=== PATIENT | female | born 1985 | race African-American/Black ===

== ENCOUNTER → 2018-10-10 | Outpatient (CLI) | payer OTHER ==
[~2018-10-10] VITALS: Ht 157.5 cm; Wt 94.3 kg
[~2018-10-10] MED LIST: ASPIRIN325 PO; IBUPROFEN 400400 M2 PO; MOBIC7.5 M1 PO; NEURONTIN 300300 M1 PO; NEURONTIN 400400 M1 PO; NORCO 5-325 TA1 EACH PO; NORFLEX100 MG PO; TYLENOL EXTRA500 MG PO
[2018-10-10 08:41] VITALS: BP 121/75
--- NOTE | 2018-10-10 08:55 | NUR ---
Pain Clinic Assessment: 1. History of Osteoarthritis: History of Rheumatoid Arthritis: 2. Height: 5 ft. 2 in. 157.5 cm. Weight: 208.0 lb. oz. 94.348 kg. Patient's BMI: 38.0 3. Vital Signs: BP: 121/75 Pulse: 93 Resp: 16 Temp: 02 Sat: 100 ECG Mon: 4. Pain Intensity: 7 5. Fall Risk: Dizziness: N Needs help standing or walking: N Fallen in the last 3 months: N Fall risk comments: 6. Patient on Blood Thinner: None 7. History of Hypertension: N 8. Opioid Therapy greater than 6 weeks: Y Opiate Contract Signed: 9. Risk Assessment Tool Provided: LOW 10. Functional Assessment Tool: / 11. Recreational Drug Use: Never Drug Type: Tobacco Use: Never Smoker Tobacco Type: Amount or Packs/day: How Many Years: Alcohol Use: No Frequency: Quant:
--- NOTE | 2018-10-12 15:34 | HPC ---
[facility] [address] [address] PAIN MANAGEMENT CONSULTATION Name: ELIZABETH WAGNER Room #: REG [facility].#: [id number] Admission: 10/10/18 Attend Phys: Jose Schwab MD Discharge: Date of : 81 Report #: [id number] THIS REPORT FOR: //name// CC: Russell CARDENAS MD FAM unknown Jose Schwab DATE OF SERVICE: 10/10/2018 The patient is a 33-year-old I am seeing today at the request of her workmen's compensation company for evaluation of right arm pain. She complains of a continuous, steady, constant, shooting, cramping, aching pain involving her wrist and radiating to upper arm with cramping sensations within the forearm and at times, in the biceps and upper arm. Her average daily pain score is an 8-9/10 and her pain score today is a 7/10. She had an independent medical evaluation performed by Radha Callaway MD, the date of that assessment 08/16/2018, is available for my review. Dr. Callaway has done an exceptional job of describing in detail the patient's work and the events, which she says brought about the current pain, which has now been present since it began on 02/01/2018. At that time, she was performing multiple repetitive tasks at work. 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 This required her to perform sewing and administrative duties. In 2018, her workload was substantially increased and she began experiencing a stabbing pain in her right hand. This was the onset of the pain that she now describes in my clinic. Pain is still worsened with activities that require use of her wrist and fingers. She has been using her left hand to do modified work duties, stapling documents. She reports that up until 08/18/2018, she was stapling up to 5000 sheets of paper, generally 3 at a time over an 8-hour shift. She was placed on FMLA and has been off work since 08/18/2018. She is scheduled to return on Wednesday of this week. In addition to Dr. Callaway she has for treatment, has been seen by Dr. Steele at the [facility]. She was referred to the pain clinic there, but was unable to go. She has been using topical agents including Gassaway Ans[place], Voltaren gel without relief and Biofreeze. She has used rice pack for heat, which provides some temporary relief. CURRENT MEDICATIONS: Include aspirin 325 mg 2 tablets daily, ibuprofen 400 mg 1 to 1/2 tablet daily, Tylenol 500 mg b.i.d. She has taken gabapentin for postop pain relief following a surgery that was performed in August. She underwent a hysterectomy on 08/18/[address] Callaway. Bladder sling was also performed. [address] [address] PAIN MANAGEMENT CONSULTATION Name: ELIZABETH WAGNER Room #: REG CL Anthony.#: [id number] Admission: 10/10/18 Attend Phys: Jose Schwab MD Discharge: Date of : 81 Report #: [id number] ALLERGIES: None. PAST MEDICAL HISTORY: She has antiphospholipid antibody syndrome. She has had 5 miscarriages during the time and she has also delivered 3 infants. Diagnosis was made after the multiple miscarriages. She carried her children to 30-35 weeks of gestation, was on anticoagulant therapy. She has a history of hysterectomy and bladder sling as described, hernia repair in August 2017. REVIEW OF SYSTEMS: She has had some slight weight changeover operator the last several months despite decreased appetite. She describes frequent urination and nocturia, incontinence and dribbling. She complains of a numbness sensation in her right hand and forearm. She admits to nervousness and depression. She has a history of anemia. SOCIAL HISTORY: She is a single parent living with her 4 children. In addition to the 3 born since 2013, she has a 12-year-old at home. She denies use of tobacco. She denies use of alcohol. She has completed an impact pain score, which is 56/70 suggesting significant interference at the maximum of mood, work, sleep and enjoyment of life related to her ongoing pain. Her score is 10/10 for each of those categories. She denies use of tobacco, alcohol and has no history of illicit drug use. FAMILY HISTORY: Noted for cancer. PHYSICAL EXAMINATION: GENERAL: Pleasant female. VITAL SIGNS: She is 5 feet 2 inches, 208 pounds with a BMI of 38.0. Her blood pressure is 121/75, heart rate is 93, respirations 16 and O2 sat 100%. HEENT: Reveals pupils to be equal, round, reactive to light. EOMs are intact. Mucous membranes are moist. NECK: Supple with good range of motion. There is no exacerbation of discomfort into the arm with any movement. She has mild tenderness in the right trapezius. CHEST: Clear to auscultation. CARDIAC: Regular rhythm without murmur. ABDOMEN: Soft. Surgical scars present. MUSCULOSKELETAL: Examination of the left and right upper extremity revealed good range of motion in the shoulder with no exacerbation of pain. She has no difficulty with abduction, internal and external rotation. Similar range of motion is noted in the elbow bilaterally. There was no restriction. She has increased pain with wrist flexion, extension, abduction. There is no swelling or redness. There is no allodynia. There are no appreciable changes in hair growth. Fingers bilaterally appear symmetrical and normal. Sensation is equal. She describes some slight hypersensitivity to pinprick in the lateral forearm. 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 Biceps and triceps function are asymmetrical with weakness noted in both biceps and triceps strength testing on the right. Deep tendon reflexes are trace to 1+ in the upper and lower [facility] [address] [place] [address] PAIN MANAGEMENT CONSULTATION Name: ELIZABETH WAGNER Room #: REG MAZIN Cruz.#: [id number] Admission: 10/10/18 Attend Phys: Jose Schwab MD Discharge: Date of : 81 Report #: [id number] extremities, these are symmetrical. Records reviewed include those of Dr. Radha Callaway and Dr. Tin Shah. An EMG is reviewed, which is negative for neuropathic changes. IMPRESSION: 1. Right wrist and forearm pain, now chronic. Exam would suggest this to be primarily soft tissue inflammation, which has not responded to conservative therapy. 2. The patient is in the midst of workmen's compensation disability treatment and assessment. 3. Antiphospholipid antibody syndrome. RECOMMENDATIONS: 1. Agree that she should see an occupational therapist and a certified hand therapist to discuss exercises and perhaps splinting. 2. I would focus on soft tissue inflammation treatment with the discontinuation of the aspirin and low dose ibuprofen substituting meloxicam 7.5 mg b.i.d. 3. She had symptomatic relief of some of her arm pain with gabapentin and showed good tolerance of gabapentin 300 mg 3 times daily. I reinitiated that for symptom management beginning at 1 tablet at night followed by b.i.d., then t.i.d. therapy as tolerated. I do not believe that she demonstrates evidence of complex regional pain syndrome. I see no reason to initiate sympathetic nerve blocks at this point. <ELECTRONICALLY SIGNED> By: Jose Schwab MD 10/12/18 1534 1234 1856 Jose Schwab MD /nt
== END ==
LOC: PAIN 06:58
DX: M25.531 Pain in right wrist (principal); M79.631 Pain in right forearm; D68.61 Antiphospholipid syndrome; Z79.899 Other long term (current) drug therapy

== ENCOUNTER 2018-10-14 11:27 | Emergency (ER) | payer OTHER ==
[~2018-10-14] VITALS: Ht 157.5 cm; Wt 94.3 kg
[~2018-10-14 11:27] MED LIST changes: -NORFLEX100 MG PO
[2018-10-14] MEDS ORDERED: NORFLEX100 MG PO (12:53)
[2018-10-14] MEDS ORDERED: NORCO 5-325 TA1 EACH PO (12:53)
[2018-10-14 13:02] VITALS: BP 134/94
== END 2018-10-14 13:03 | disposition home or self-care (01) ==
LOC: ER 11:27
DX: S16.1XXA Strain of muscle, fascia and tendon at neck level, initial encounter (principal); M54.12 Radiculopathy, cervical region; M70.961 Unspecified soft tissue disorder related to use, overuse and pressure, right lower leg; Z90.710 Acquired absence of both cervix and uterus; X50.1XXA Overexertion from prolonged static or awkward postures, initial encounter; Y92.89 Other specified places as the place of occurrence of the external cause; Y93.89 Activity, other specified; Y99.8 Other external cause status

== ENCOUNTER → 2018-10-24 | Outpatient (CLI) | payer OTHER ==
[~2018-10-24] VITALS: Ht 157.5 cm; Wt 94.8 kg
[~2018-10-24] MED LIST changes: +NORFLEX100 MG PO; +TRAMADOL HCL50 MG PO
--- NOTE | ~2018-10-24 | HPC ---
[facility] [address] [place] [address] PAIN MANAGEMENT CONSULTATION Name: ELIZABETH WAGNER [id number] Admission: 10/24/18 ������������������ Attend Phys: Jose Schwab MD Discharge: ������������������ Date of : 81 Report #: [id number] THIS REPORT FOR: //name// CC: [facility] physician/PCP Jose Schwab DATE OF SERVICE: 10/24/2018 Followup visit for chronic right arm pain. Workmen's compensation. The patient is in the clinic today in followup. I saw her on 10/10/2018. She was referred to occupational therapy for hand and wrist evaluation, therapeutic exercise and modalities as needed. She began complaining of more pain in the neck after her visit to my office. She was seen in the Emergency Room on the day that she was to return to work complaining of severe exacerbation of pain radiating through the neck, shoulder, upper chest, upper arm, forearm and into the hand. She has been unable to use the right arm for any day-to-day activities. 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 The copies come off about 6 feet off the ground. 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 I do not have a job description for her current work. She is unable to do this with her left hand. She is in the midst of a workmen's compensation process and has an attorney general hired to help her with her claims. MEDICATIONS: Gabapentin 300 mg t.i.d., meloxicam 7.5 mg b.i.d., Tylenol 500 mg as needed. She denies side effects from medication. ALLERGIES: None. PHYSICAL EXAMINATION: GENERAL: Somewhat anxious female. VITAL SIGNS: Blood pressure 141/80, heart rate 98, respirations 17. BMI 38.2. EXTREMITIES: Examination of the neck reveals pain now with neck flexion and extension, lateral tilt. Tenderness in the suboccipital region and along the muscles of the right side of the neck. Splenius capitis, cervicalis trapezius all demonstrate tenderness. She has decreased range of motion in the shoulder, elbow. Muscle strength deltoid 3/5, biceps 2-3/5, triceps 2-3/5, accounting officer 2/5. Sensation diminished in the C6, C7, C8 distribution. IMPRESSION: Increasing pain in the right arm. She still does not demonstrate allodynia or swelling, so characteristic of patients with complex regional pain syndrome. Much of her weakness is guarding related to pain complaint. RECOMMENDATION: An epidural steroid injection will [place] [address] PAIN MANAGEMENT CONSULTATION Name: ELIZABETH WAGNER Room #: REG MAZIN Vasquez#: [id number] Admission: 10/24/18 ������������������ Attend Phys: Jose Schwab MD Discharge: ������������������ Date of : 81 Report #: [id number] block and to see if we can improve use of the right arm. I have discussed the importance of ongoing regular range of motion exercises, flexibility and strengthening. She will continue to follow recommendations of physical and occupational therapist for these exercises. PROCEDURE: Cervical epidural injection, C6-C7 right paramedian translaminar. DESCRIPTION OF PROCEDURE: After informed consent, she was taken to fluoroscopic suite, placed prone, skin prepped with ChloraPrep. Skin anesthetized over C6-C7. A 20-gauge Tuohy epidural needle was advanced first attempt in the epidural space with loss of resistance. No blood or CSF was aspirated. 1 mL of Omnipaque was injected and excellent spread was seen all along the right side extending into the lateral recess as far as C3 and down to roughly T2. This was then followed by 4 mL of 0.5% lidocaine mixed with 80 mg of triamcinolone. She tolerated the procedure well. There were no complications. She was taken to recovery room where she was observed for 45 minutes and discharged. Pain score 1-2 at discharge with improvement in range of motion. Followup visit planned in 2-3 weeks. Further injections will depend upon response to treatment. ��������������������������������������������� ���������������������������������������� By: ��������������������������������������������� 1221 2214 Jose Schwab MD /nt
[2018-10-24 08:34] VITALS: BP 141/80
--- NOTE | 2018-10-24 08:37 | NUR ---
Pain Clinic Assessment: 1. History of Osteoarthritis: History of Rheumatoid Arthritis: 2. Height: 5 ft. 2 in. 157.5 cm. Weight: 209.0 lb. oz. 94.802 kg. Patient's BMI: 38.2 3. Vital Signs: BP: 141/80 Pulse: 98 Resp: 17 Temp: 02 Sat: 100 ECG Mon: 4. Pain Intensity: 7 5. Fall Risk: Dizziness: N Needs help standing or walking: N Fallen in the last 3 months: N Fall risk comments: 6. Patient on Blood Thinner: None 7. History of Hypertension: N 8. Opioid Therapy greater than 6 weeks: Y Opiate Contract Signed: 9. Risk Assessment Tool Provided: LOW 10. Functional Assessment Tool: 56/ 11. Recreational Drug Use: Never Drug Type: Tobacco Use: Never Smoker Tobacco Type: Amount or Packs/day: How Many Years: Alcohol Use: No Frequency: Quant:
== END | disposition home or self-care (01) ==
LOC: PAIN 07:22
DX: M54.12 Radiculopathy, cervical region (principal); G89.29 Other chronic pain; Z79.899 Other long term (current) drug therapy; Z98.890 Other specified postprocedural states

== ENCOUNTER → 2018-11-07 | Outpatient (CLI) | payer OTHER ==
[~2018-11-07] VITALS: Ht 157.5 cm; Wt 96.2 kg
--- NOTE | ~2018-11-07 | HPC ---
[facility] [address] [place] [address] PAIN MANAGEMENT CONSULTATION Name: ELIZABETH WAGNER Room #: REG [facility] Anthony.#: [id number] Admission: 11/07/18 ������������������ Attend Phys: Jose Schwab MD Discharge: ������������������ Date of : 81 Report #: [id number] THIS REPORT FOR: //name// CC: [facility] physician/PCP Jose Schwab DATE OF SERVICE: 11/07/2018 Followup visit for chronic right arm pain, radicular pain in the C6 through C8 distribution. Sympathetic pain features. I am pleased to report that the patient had an outstanding response to her cervical epidural injection. For several days following her injection, she had almost complete pain relief. This was dramatic and well outlasted effects of the local anesthetic. Changed her outlook and she was able to be more involved in therapy. After the few days of complete relief, the pain gradually returned and for many days, she had about 70% pain relief and was able to continue in therapy. She was doing something called a nerve glide where she was required to perform external rotation of her arm and this seemed to exacerbate her pain some, but overall she remains better even today by about 15%-20%. She seems more positive and optimistic at this stage. I would say that her injections provided substantial benefit. She was able to diminish her use of gabapentin and tramadol during the period when her pain was under good control. She does not need additional medication for pain other than the gabapentin today and she continues on it at 300 mg t.i.d. PHYSICAL EXAMINATION: GENERAL: She seems more pleasant, optimistic, less anxious today. VITAL SIGNS: Her blood pressure 123/82, heart rate 108, respirations 18. MUSCULOSKELETAL: She has still some limitations in range of motion of the neck with neck extension and there remains tenderness along the suboccipital region and right neck. Strength is modestly improved, deltoid 4/5, biceps 3-4/5, triceps 4/5, oncology pharmacist 3/5. Sensation is intact through the C6-C8 distribution. IMPRESSION: Right arm pain, radicular features. She has responded very favorably to an initial epidural injection. PLAN: I will repeat a second injection today, but would like to wait 1 month before we see her back in the clinic. Hopefully, she will see a further improvement, sustained relief and will see progress in therapy. I would like her to continue in therapy cautiously for goals of return to function. [address] [address] PAIN MANAGEMENT CONSULTATION Name: ELIZABETH WAGNER Room #: REG CL Christina#: [id number] Admission: 11/07/18 ������������������ Attend Phys: Jose Schwab MD Discharge: ������������������ Date of : 81 Report #: [id number] PROCEDURE: Cervical epidural injection under fluoroscopic guidance C6-C7 right paramedian approach. After informed consent, she was taken to fluoroscopic suite, placed prone, skin prepped with ChloraPrep. Skin anesthetized over the C6-C7 interspace and a 20-gauge Tuohy epidural needle advanced on the first attempt in the epidural space with loss of resistance technique. There was no blood or CSF aspirated. 1 mL of Omnipaque was injected. Good spread of dye was observed into the epidural space, followed by 3 mL of 0.5% lidocaine mixed with 80 mg of triamcinolone. She tolerated the procedure well. Pain was reduced again by about 40% in recovery room and she was discharged with a followup visit scheduled in 1 month. ��������������������������������������������� ���������������������������������������� By: ��������������������������������������������� 1749 1240 Jose Schwab MD /nt
[2018-11-07 13:50] VITALS: BP 123/82
--- NOTE | 2018-11-07 13:51 | NUR ---
Pain Clinic Assessment: 1. History of Osteoarthritis: History of Rheumatoid Arthritis: 2. Height: 5 ft. 2 in. 157.5 cm. Weight: 212.0 lb. oz. 96.163 kg. Patient's BMI: 38.8 3. Vital Signs: BP: 123/82 Pulse: 108 Resp: 18 Temp: 02 Sat: 100 ECG Mon: 4. Pain Intensity: 7 5. Fall Risk: Dizziness: N Needs help standing or walking: N Fallen in the last 3 months: N Fall risk comments: 6. Patient on Blood Thinner: None 7. History of Hypertension: N 8. Opioid Therapy greater than 6 weeks: Y Opiate Contract Signed: 9. Risk Assessment Tool Provided: LOW 10. Functional Assessment Tool: 56/ 11. Recreational Drug Use: Never Drug Type: Tobacco Use: Never Smoker Tobacco Type: Amount or Packs/day: How Many Years: Alcohol Use: No Frequency: Quant:
== END | disposition home or self-care (01) ==
LOC: PAIN 07:13
DX: M54.12 Radiculopathy, cervical region (principal); M79.601 Pain in right arm; G89.29 Other chronic pain; Z79.899 Other long term (current) drug therapy

== ENCOUNTER → 2018-11-28 | Outpatient (CLI) | payer OTHER ==
[~2018-11-28] VITALS: Ht 157.5 cm; Wt 97.3 kg
[~2018-11-28] MED LIST changes: +LIDOCAINE PAIN1 EACH TRANSDERM; +MOBIC7.5 MG PO; +TRAMADOL 50 MG50 MG PO
[2018-11-28 11:05] VITALS: BP 139/90
--- NOTE | 2018-11-28 11:18 | NUR ---
Pain Clinic Assessment: 1. History of Osteoarthritis: History of Rheumatoid Arthritis: 2. Height: 5 ft. 2 in. 157.5 cm. Weight: 214.6 lb. oz. 97.342 kg. Patient's BMI: 39.2 3. Vital Signs: BP: 139/90 Pulse: 79 Resp: 20 Temp: 02 Sat: 100 ECG Mon: 4. Pain Intensity: 8 TODAY 7-8 AVG 5. Fall Risk: Dizziness: N Needs help standing or walking: N Fallen in the last 3 months: N Fall risk comments: 6. Patient on Blood Thinner: None 7. History of Hypertension: N 8. Opioid Therapy greater than 6 weeks: Y Opiate Contract Signed: 9. Risk Assessment Tool Provided: LOW 10. Functional Assessment Tool: 56/70 11. Recreational Drug Use: Never Drug Type: Tobacco Use: Never Smoker Tobacco Type: Amount or Packs/day: How Many Years: Alcohol Use: No Frequency: Quant:
--- NOTE | 2018-11-30 15:29 | HPC ---
[facility] [address] [place] [address] PAIN MANAGEMENT CONSULTATION Name: ELIZABETH WAGNER [facility] [id number] Admission: 11/28/18 ������������������ Attend Phys: Jose Schwab MD Discharge: ������������������ Date of : 81 Report #: [id number] THIS REPORT FOR: //name// CC: [facility] physician/PCP Jose Schwab DATE OF SERVICE: 11/28/2018 CHIEF COMPLAINT: Followup visit for chronic right arm pain with radicular features as well as sympathetic pain. The patient returns to pain clinic today reporting that her second epidural injection provided substantial pain relief greater than 70%. She said she then went to therapy where she was given sessions of exercises some lasting up to 45 minutes and the pain rapidly returned. She now complains of swelling in her right trapezius, tingling and increasing pain to a level of 8/10 with radiation down the arm. She reports that this began fairly quickly after her therapy. She is involved in a workman's comp system. She has an ip attorney to help. She reports she got the ip attorney to help with her case because she was not getting seen or sent to physicians. She was in our clinic today for a long time and then returned later. She is clearly upset. She cried on more than one occasion. Her work is hard. The jobs that they have her doing in reduced duty are also difficult for her. 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 She is a single mother of 4 children, all under the age of 12. She cried today saying she could not even brush the hair of her children or provide for them in the kitchen. She is highly frustrated and depressed. We discussed depression and medication, but she was resistant to using any medication, complaining that there was depression in her family and medications had untoward side effects. CURRENT MEDICATIONS: Tramadol 1 tablet twice daily, Tylenol Extra Strength 1 tablet daily, ibuprofen 600 mg 1 tablet daily, gabapentin 400 mg t.i.d. PHYSICAL EXAMINATION: Blood pressure is 139/90, heart rate 79, respirations 20, BMI is 39.2. She is about 6 pounds heavier than she was when she came into our clinic for her initial visit 2 weeks ago. At that time, her BMI was 38. Cervical range of motion is limited in extension. She has tenderness throughout the right side of her cervical spine. She holds her right arm in a touch me not position. There is some diffuse tenderness throughout the upper and lower forearm. She has a number of small circular lesions [place] [address] PAIN MANAGEMENT CONSULTATION Name: ELIZABETH WAGNER Room #: REG [facility] Christina#: [id number] Admission: 11/28/18 ������������������ Attend Phys: Jose Schwab MD Discharge: ������������������ Date of : 81 Report #: [id number] be acne like. She reports that when the pain is severe, she scratches her arm. EXTREMITIES: There is weakness in biceps, deltoid, triceps and graphite grinder strength today. There is no allodynia noted. IMPRESSION: 1. Severe right arm pain with sympathetic features. 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 2. Situational depression. She has a significant amount of stress and anxiety at this point. RECOMMENDATION: I have ordered an MRI of her cervical spine. We do not have that study yet and she has evidence of radiculopathy. I have discussed some with her the difference between objective and subjective symptoms. We presented an optimistic outlook for her and promised her that we were here to help. She spent an additional 15-30 minutes in the clinic and was counseled by our excellent pain nursing staff on positive outlook and self-efficacy. A followup visit is planned after her MRI to determine whether or not a subsequent cervical epidural injection would be of benefit. Total time spent with this patient in the clinic today including my time and the nurse's time counseling was about 1 hour. ��������������������������������������������� <ELECTRONICALLY SIGNED> ���������������������������������������� By: Jose Schwab MD ��������������������������������������������� 11/30/18 1529 1727 2105 Jose Schwab MD /nt
== END ==
LOC: PAIN 06:58
DX: M79.601 Pain in right arm (principal); F43.21 Adjustment disorder with depressed mood; F41.9 Anxiety disorder, unspecified; Z79.899 Other long term (current) drug therapy

== ENCOUNTER 2018-12-19 19:58 | Emergency (ER) | payer BC ==
[~2018-12-19] VITALS: Ht 177.8 cm; Wt 97.1 kg
[2018-12-19 22:08] LABS: HEMATOCRIT 37.6 % (37.0-47.0); HEMOGLOBIN 12.7 gm/dL (12.0-15.0); MCH 30.3 pg (26.0-34.0); MCHC 33.8 g/dL (28.0-37.0); MCV 89.6 fL (80.0-100.0); RBC 4.2 mil/uL (4.20-5.00); RDW 13.7 % (10.5-14.5); WBC 9.4 thou/uL (4.0-11.0)
[2018-12-19 22:15] LABS: CALCIUM 8.3 mg/dL (8.5-10.1); CREATININE 0.8 mg/dL (0.6-1.0); POTASSIUM 3.9 mmol/L (3.5-5.1)
[2018-12-20] MEDS ORDERED: NORCO 5-325 TA1 EACH PO (00:05)
[2018-12-20 00:30] VITALS: BP 00/00
== END 2018-12-20 00:32 | disposition home or self-care (01) ==
LOC: ER 19:58
PROVIDERS: Emergency Medicine
DX: M54.12 Radiculopathy, cervical region (principal); R22.1 Localized swelling, mass and lump, neck; Z90.710 Acquired absence of both cervix and uterus

== ENCOUNTER 2019-01-20 15:26 | Emergency (ER) | payer OTHER ==
[~2019-01-20] VITALS: Ht 157.5 cm; Wt 89.8 kg
[2019-01-20] MEDS ORDERED: ULTRAM 50MG TAB50 MG PO (15:45)
[2019-01-20 16:23] LABS: HEMATOCRIT 39.9 % (37.0-47.0); HEMOGLOBIN 13.5 gm/dL (12.0-15.0); MCHC 33.7 g/dL (28.0-37.0); MCV 88.9 fL (80.0-100.0); RBC 4.49 mil/uL (4.20-5.00); RDW 13.3 % (10.5-14.5); WBC 9.2 thou/uL (4.0-11.0)
[2019-01-20 16:32] LABS: CALCIUM 8.8 mg/dL (8.5-10.1); CREATININE 0.8 mg/dL (0.6-1.0); POTASSIUM 3.7 mmol/L (3.5-5.1)
[2019-01-20 17:26] VITALS: BP 139/74
[2019-01-20] MEDS ORDERED: TIZANIDINE HCL4 MG PO (17:34)
[2019-01-20] MEDS ORDERED: NORCO 5-325 TA1 EACH PO (17:34)
== END 2019-01-20 18:45 | disposition home or self-care (01) ==
LOC: ER 15:26
PROVIDERS: Physician Assistant
DX: M54.12 Radiculopathy, cervical region (principal); Z90.710 Acquired absence of both cervix and uterus

== ENCOUNTER 2020-05-01 22:52 | Emergency (ER) | payer OTHER ==
[~2020-05-01] VITALS: Ht 157.5 cm; Wt 108.9 kg
[~2020-05-01 22:52] MED LIST changes: +TIZANIDINE HCL4 MG PO; +ULTRAM 50MG TAB50 MG PO
[2020-05-02 00:50] VITALS: BP 121/91
== END 2020-05-02 01:00 | disposition home or self-care (01) ==
LOC: ER 22:52
DX: S61.215A Laceration without foreign body of left ring finger without damage to nail, initial encounter (principal); Z90.711 Acquired absence of uterus with remaining cervical stump; Z79.899 Other long term (current) drug therapy; W27.2XXA Contact with scissors, initial encounter; Y93.89 Activity, other specified; Y92.89 Other specified places as the place of occurrence of the external cause; Y99.8 Other external cause status

== ENCOUNTER 2020-05-22 14:10 | Emergency (ER) | payer OTHER ==
[~2020-05-22] VITALS: Ht 167.6 cm; Wt 92.1 kg
[2020-05-22 14:57] LABS: ABSOLUTE NEUTROPHILS 4.8 thou/uL (1.4-8.2); BASOPHILS 1.1 % (0.0-2.0); EOSINOPHILS 5.9 % (0.0-3.0); HEMATOCRIT 38.6 % (37.0-47.0); HEMOGLOBIN 12.7 gm/dL (12.0-15.0); LYMPHOCYTES 30.1 % (24.0-44.0); MCHC 32.9 g/dL (28.0-37.0); MCV 91.1 fL (80.0-100.0); MONOCYTES 9.2 % (1.0-8.0); PLATELET COUNT 352 thou/uL (150-400); POLYS 53.7 % (36.0-66.0); RBC 4.23 mil/uL (4.20-5.00); RDW 13.1 % (10.5-14.5); WBC 8.9 thou/uL (4.0-11.0)
[2020-05-22 15:08] LABS: ANION GAP 14 mmol/L (7-16); BUN 11 mg/dL (7-18); CALCIUM 8.4 mg/dL (8.5-10.1); CHLORIDE 104 mmol/L (98-107); CO2 21 mmol/L (21-32); CREATININE 0.8 mg/dL (0.6-1.0); GLUCOSE 102 mg/dL (74-106); SODIUM 139 mmol/L (136-145)
[2020-05-22 15:18] LABS: ALBUMIN 3.5 g/dL (3.4-5.0); SGOT 28 U/L (15-37); SGPT 36 U/L (30-65); TOTAL BILIRUBIN 0.9 mg/dL (0.2-1.0); TOTAL PROTEIN 7.6 g/dL (6.4-8.2); TROPONIN-I <0.06 ng/mL (<0.06)
--- NOTE | 2020-05-22 16:42 | EKG ---
[facility] [place] [address] [address] [place] [address] ELECTROCARDIOGRAM REPORT Name: ELIZABETH WAGNER Room #: PRE [facility]..#: [id number] Admission: Attend Phys: Discharge: Date of : 81 Report #: [id number] THIS REPORT FOR: cc: FAM - Family physician unknown FAM - Family physician unknown Kashif Adler MD [facility] ~ THIS REPORT FOR: //name// [facility] ED Test Date: 2020-05-22 Test Time: 14:34:50 Pat Name: ELIZABETH WAGNER Department: Room: Gender: F Real Estate Account Executive: KF : 1985 Requested By: Naa Farrell Order Number: [id number] MD: Kashif Adler Measurements Intervals [place] Rate: 84 P: 17 NV: 127 QRS: 18 QRSD: 82 T: 2 QT: 371 QTc: 439 Interpretive Statements Sinus rhythm Borderline T abnormalities, anterior leads No previous ECG available for comparison Electronically Signed On 05-22-2020 16:41:53 CDT by Kashif Adler [email or web address] <ELECTRONICALLY SIGNED> By: Kashif Adler MD, FACC 05/22/20 1641 1434 1434 Kashif Adler MD, FACC /EPI
[2020-05-22 17:09] LABS: URINE BILIRUBIN NEGATIVE (Negative); URINE BLOOD NEGATIVE (Negative); URINE CLARITY CLEAR; URINE COLOR YELLOW; URINE GLUCOSE-RANDOM* NEGATIVE (Negative); URINE KETONES NEGATIVE (Negative); URINE LEUKOCYTES-REFLEX NEGATIVE (Negative); URINE NITRITE-REFLEX NEGATIVE (Negative); URINE PROTEIN (DIPSTICK) NEGATIVE (Negative)
[2020-05-22] MEDS ORDERED: PROMETH-CODEIN 65 ML PO (17:23)
[2020-05-22 17:41] VITALS: BP 116/74
== END 2020-05-22 17:41 | disposition home or self-care (01) ==
LOC: ER 14:10
PROVIDERS: Physician Assistant
DX: R05 Cough (principal); R06.02 Shortness of breath; Z20.828 Contact with and (suspected) exposure to other viral communicable diseases; R07.89 Other chest pain; R53.83 Other fatigue; R00.2 Palpitations; Z90.711 Acquired absence of uterus with remaining cervical stump; Z79.899 Other long term (current) drug therapy

== ENCOUNTER 2021-03-23 01:12 | Emergency (ER) | payer OTHER ==
[~2021-03-23] VITALS: Ht 157.5 cm; Wt 95.3 kg
[~2021-03-23 01:12] MED LIST changes: +PROMETH-CODEIN 65 ML PO
[2021-03-23] MEDS ORDERED: HYDROCODON-ACE1 EAC7 PO (01:36)
[2021-03-23] MEDS ORDERED: NEURONTIN 400M400 M2 PO (01:37)
[2021-03-23 02:16] LABS: URINE BILIRUBIN NEGATIVE (Negative); URINE BLOOD NEGATIVE (Negative); URINE CLARITY CLEAR; URINE COLOR YELLOW; URINE GLUCOSE-RANDOM* NEGATIVE (Negative); URINE KETONES NEGATIVE (Negative); URINE LEUKOCYTES-REFLEX NEGATIVE (Negative); URINE NITRITE-REFLEX NEGATIVE (Negative); URINE PROTEIN (DIPSTICK) NEGATIVE (Negative); URINE SPECIFIC GRAVITY 1.025 (1.005-1.035); URINE UROBILINOGEN 0.2 E.U./dl (0.2-1.0)
[2021-03-23 02:37] LABS: ABSOLUTE NEUTROPHILS 5.1 thou/uL (1.4-8.2); BASOPHILS 0.7 % (0.0-2.0); EOSINOPHILS 3.8 % (0.0-3.0); HEMATOCRIT 37.4 % (37.0-47.0); HEMOGLOBIN 12.6 gm/dL (12.0-15.0); MCH 31.2 pg (26.0-34.0); MCHC 33.7 g/dL (28.0-37.0); MCV 92.5 fL (80.0-100.0); MONOCYTES 6.5 % (1.0-8.0); PLATELET COUNT 311 thou/uL (150-400); RBC 4.04 mil/uL (4.20-5.00); WBC 10.1 thou/uL (4.0-11.0)
[2021-03-23 02:38] LABS: CALCIUM 8.8 mg/dL (8.5-10.1); CREATININE 0.8 mg/dL (0.6-1.0)
[2021-03-23 02:51] LABS: ALBUMIN 3.8 g/dL (3.4-5.0); DIRECT BILIRUBIN 0.1 mg/dL (<0.1-0.2); TOTAL BILIRUBIN 0.5 mg/dL (0.2-1.0); TOTAL PROTEIN 7.6 g/dL (6.4-8.2)
[2021-03-23] MEDS ORDERED: DICYCLOMINE HCL20 MG PO ×2 (03:41→12:46)
[2021-03-23] MEDS ORDERED: ZOFRAN ODT4 MG PO ×2 (03:41→12:46)
[2021-03-23 04:30] VITALS: BP 106/57
== END 2021-03-23 04:32 | disposition home or self-care (01) ==
LOC: ER 01:12
PROVIDERS: Emergency Medicine
DX: R10.12 Left upper quadrant pain (principal); Z90.710 Acquired absence of both cervix and uterus; Z79.891 Long term (current) use of opiate analgesic; Z79.899 Other long term (current) drug therapy